=== PATIENT | male | born 1965 | race Caucasian/White ===

== ENCOUNTER 2023-11-16 22:38 | Emergency (ER) | payer SELFPAY ==
[2023-11-16 22:40] VITALS: BP 149/75; BMI 28.8
[2023-11-16 22:42] VITALS: BP 149/75
[2023-11-16 22:59] LABS: % Basophils 0.8 % (0-2); % Eosinophils 2.9 % (0-6); % Immature Granulocytes 0.5 % (0-0.5); % Lymphocytes 2.3 % (20.5-51.1); % Monocytes 17.3 % (1.7-9.3); % Neutrophils 76.2 % (42.2-75.2); Absolute Basophils 0.1 10^3/uL (0-0.2); Absolute Eosinophils 0.3 10^3/uL (0-0.7); Absolute Immature Granulocytes 0.1 10^3/uL (0-0.05); Absolute Lymphocytes 0.2 10^3/uL (1.2-3.4); Absolute Monocytes 1.6 10^3/uL (0.1-0.6); Absolute Neutrophils 7.2 10^3/uL (1.4-6.5); Hematocrit 31.3 % (39.0-52.0); Hemoglobin 10.9 g/dL (13.0-18.0); Mean Corp Hgb Conc. 34.8 g/dL (33.0-37.0); Mean Corpuscular Hgb 31.5 pg (27.0-31.0); Mean Corpuscular Volume 90.5 fL (80.0-94.0); Mean Platelet Volume 9.3 fL (7.4-10.4); Nucleated Red Blood Cells % 0 % (-); Platelet Count 252 10^3/uL (130-400); Red Blood Cell Count 3.46 10^6/uL (4.70-6.10); Red Cell Dist. Width 13.8 % (11.5-14.5); White Blood Cell Count 9.4 10^3/uL (4.8-10.8)
[2023-11-16 23:00] VITALS: BP 140/72
[2023-11-16 23:15] LABS: ALT (SGPT) 44 U/L (0-50); AST (SGOT) 37 U/L (17-59); Albumin 3.6 g/dl (3.5-5.0); Alkaline Phosphatase 71 U/L (38-126); Blood Urea Nitrogen 19 mg/dl (9-20); Calcium 8.7 mg/dl (8.4-10.2); Carbon Dioxide 27 mmol/L (22-30); Chloride 98 mmol/L (98-107); Estimated Creatinine Clearance 89 ml/min; Glucose 132 mg/dl (70-99); Potassium 3.9 mmol/L (3.5-5.1); Sodium 137 mmol/L (135-145); Total Bilirubin 0.5 mg/dl (0.2-1.3); Total Protein 5.6 g/dl (6.3-8.2); eGFR > 60.00
[2023-11-16 23:30] VITALS: BP 120/67
[2023-11-17] VITALS: BP 129/68
[2023-11-17] MEDS: NSS 1000 IV
[2023-11-17 00:30] VITALS: BP 117/62
--- NOTE | 2023-11-17 00:41 | EDRN ---
Patient resting with at bedside
--- NOTE | 2023-11-17 00:50 | ED.GENMED ---
History of Present Illness
General
Chief Complaint: Seizure
Time Seen by Provider: 11/16/23 23:10
History of Present Illness
History of Present Illness:
58-year-old male with reported history of seizure and multiple myeloma presenting for concern of seizure. Patient reports prior to arrival he was sitting down. He has been having pain in his right foot, secondary to plantar fasciitis. He was
leaning forward, and saw him fall forward with full body convulsion and brief loss of consciousness. Notes that he has had similar episodes in the past, unclear if vasovagal versus seizure, is not on seizure medications. He notes that these
episodes are usually triggered by stress. He denies any fever, chest pain, difficulty breathing. He denies any weakness or numbness to his extremities. Last episode was about a year ago. He reports some generalized fatigue, which is typical
after these episodes. Denies additional acute medical
Phy Exam
Physical Exam
Physical Exam:
General: Well-appearing, no clinical signs of dehydration, nontoxic and in no acute distress
HEENT: protecting airway
Neck: appears supple
CV: Normal heart rate, regular rhythm, no evidence of cyanosis
Resp: No accessory muscle use, no increased work of breathing, lungs clear to auscultation bilaterally
Abd: Soft and non-distended, no tenderness to palpation
Extremities: No deformities, no swelling, no erythema, pulses and sensation intact. Mild tenderness to the right heel without swelling or deformity
Neuro: alert, no focal neurologic deficit
: deferred
Rectal: deferred
Psych: Normal affect
Skin: Intact
Course
Orders/Labs/Results
Orders:
Orders
11/16/23 22:50
CT Head W/o Iv Contrast Urgent
Comment:
Reason For Exam: seizure
11/16/23 22:52
CMP [Comprehensive Metabolic Panel] Urgent
Complete Blood Count/With Diff Urgent
11/16/23 23:43
0.9% Sodium Chloride 1000 ml [Nss] 1,000 ml IV BOLUS
11/17/23 00:54
Electrocardiogram (*1) Stat
Reason for Study: Syncope
Electrocardiogram (*1) Urgent
EKG- Treatment ONCE
Abnormal Lab Results
11/16/23
22:52
RBC 3.46 L 10^6/uL
(4.70-6.10)
Hgb 10.9 L g/dL
(13.0-18.0)
Hct 31.3 L %
(39.0-52.0)
MCH 31.5 H pg
(27.0-31.0)
Abs Immat Gran (auto) 0.1 H 10^3/uL
(0-0.05)
Absolute Neuts (auto) 7.2 H 10^3/uL
(1.4-6.5)
Absolute Lymphs (auto) 0.2 L 10^3/uL
(1.2-3.4)
Absolute Monos (auto) 1.6 H 10^3/uL
(0.1-0.6)
Neutrophils % 76.2 H %
(42.2-75.2)
Lymphocytes % 2.3 L %
(20.5-51.1)
Monocytes % 17.3 H %
(1.7-9.3)
Glucose 132 H mg/dl
(70-99)
Total Protein 5.6 L g/dl
(6.3-8.2)
11/16/23 22:52
11/16/23 22:52
Vital Signs
Initial and Last Documented VS:
Initial Vital Signs
Temp Pulse Resp BP Pulse Ox
97.8 F 58 14 149/75 100
11/16/23 22:40 11/16/23 22:40 11/16/23 22:40 11/16/23 22:40 11/16/23 22:40
Last Documented Vital Signs
Temp Pulse Resp BP Pulse Ox
97.8 F 59 16 117/62 98
11/16/23 22:40 11/17/23 00:30 11/17/23 00:30 11/17/23 00:30 11/17/23 00:30
MDM/Problems Addressed
MDM/Problems Addressed:
58-year-old male with history of seizures and multiple myeloma presenting for concern of seizure prior to arrival. Vital signs on arrival are normal.
On exam, patient is in no acute distress, appears fatigued, otherwise nontoxic. Unremarkable neurologic exam. No physical signs of trauma. Patient symptoms appear more consistent with myoclonic convulsive episode after syncope. Patient regained
consciousness immediately after episode. No prolonged period of seizure-like activity. Will screen with laboratory analysis and EKG. Will administer IV fluids
01:10 -patient's labs are unremarkable. EKG without arrhythmia or ischemia. Patient remained stable. Feel stable for discharge with close interval primary care follow-up and neurology follow-up. Return precautions discussed and patient
verbalized understanding
*EKG
Interpreted by ED Provider?: Yes
EKG Intrepretation Date: 11/17/23
EKG Intrepretation Time: 01:19
Interpretation: normal
Heart Rate: 59
Rate: normal
Rhythm: sinus
[place]: normal axis
Interval: normal interval
QRS Pattern: normal QRS
Ischemia: no ischemia
*Critical Care Note
Total Time (30-74mins, 75-104mins- exclusive of procedures): Not Applicable
ED Attending Note
-
Portions of this chart may have been created with voice recognition software.� Occasional wrong word or��sound alike� substitutions may have occurred due to the inherent limitations of voice recognition software.
Discharge Plan
Departure
Referrals:
[facility] [Other]
Interventions
Interventions:
*General Assessment Last Done: 11/16/23 22:40
*Neglect/Abuse Screening Last Done: 11/16/23 22:40
ED- Fall Risk Assessment Last Done: 11/16/23 23:39
*ED COVID-19 Vaccine History Last Done: 11/16/23 22:40
ED- Cardiac Assessment Last Done: 11/16/23 23:39
ED- Neurological Assessment Last Done: 11/16/23 23:39
ED- Pulmonary Assessment Last Done: 11/16/23 23:39
Discharge Date and Time
Print Language: SERBIAN
[2023-11-17 01:00] VITALS: BP 119/58
[2023-11-17 01:30] VITALS: BP 129/64
[2023-11-17 02:00] VITALS: BP 111/58
--- NOTE | 2023-11-17 02:30 | EDRN ---
Patient ambulatory to the bathroom without any difficulty, feels ready to go home.
== END 2023-11-17 02:55 | disposition home or self-care (01) ==
LOC: EMR 22:38
PROVIDERS: EMERGENCY PHYSICIAN Student in an Organized Health Care Education/Training Program
DX: R55 Syncope and collapse (principal); Z85.79 Personal history of other malignant neoplasms of lymphoid, hematopoietic and related tissues
CPT/HCPCS: 96360; 99284; 70450; 80053; 85025; 93005